=== PATIENT | male | born 1960 | race Caucasian/White ===

== ENCOUNTER 2016-08-24 11:33 | Observation (INO) | payer MEDICAID, MEDICARE ==
[2016-08-24 12:03] LABS: Basophils % (A) 0 %; CH 29.5; CHCM 35.8; Eosinophils # (A) 0.1 k/uL (0-0.7); Eosinophils % (A) 1 %; HCT 39.3 % (39.0-53.0); HDW 3.01; HGB 14.4 gm/dL (13.0-17.5); Luc # (Auto) 0.18; Luc % (Auto) 2; Lymphocytes # (A) 0.9 k/uL (1.0-4.8); Lymphocytes % (A) 10 %; MCH 30.3 pg (25.0-35.0); MCHC 36.6 g/dL (31.0-37.0); MCV 82.6 fL (80.0-100.0); Mean Platelet Volume 8.1; Monocytes # (A) 0.9 k/uL (0-1.0); Monocytes % (A) 10 %; Neutrophils # (A) 7.1 k/uL (1.3-7.7); Neutrophils % (A) 78 %; RBC 4.75 m/uL (4.30-5.90); RDW 13.4 % (11.5-15.5); WBC 9.2 k/uL (3.8-10.6); WBC (Perox) 8.35
[2016-08-24 12:33] LABS: ALT 27 U/L (21-72); AST 21 U/L (17-59); Alkaline Phosphatase 76 U/L (38-126); Amylase <30 U/L (30-110); Bilirubin, Delta 0.3 mg/dL (0.0-0.2); Total Bilirubin 0.7 mg/dL (0.2-1.3); Total Protein 6.9 g/dL (6.3-8.2)
--- NOTE | 2016-08-24 14:02 | CT ---
EXAMINATION TYPE: CT abdomen pelvis w con DATE OF EXAM: 08/24/2016 COMPARISON: NONE HISTORY: 56-year-old male with RLQ pain, nausea/vomiting and fever TECHNIQUE: Contiguous axial scanning of the abdomen and pelvis following administration of 100 ml Omn ipaque 300 IV contrast. Delayed images through the kidneys and coronal/sagittal reconstructions perf ormed. CT DLP: 839.2 mGycm Automated exposure control for dose reduction was used. FINDINGS: The heart is normal size without pericardial effusion. The band of atelectasis or scarring at the pos terior right lung base with some trace pleural effusion. Small hiatal hernia. No focal liver lesion or biliary ductal dilatation. Portal venous system is patent. Gallbladder, adrenal glands, kidneys, spleen with inferior splenule, and pancreas show no gross abnor mality. There is a 3.5 cm lesion that is round projecting from the inferior aspect of the third portion of th e duodenum. No significant change in density on the delayed kidney images with Hounsfield units aroun d 40. Scattered nonenlarged mesenteric lymph nodes. There are severe focal inflammatory changes centered along the appendix and in anterior cecum. This c auses some of the appendix to be obscured but the appendix is seen within these inflammatory changes collapsed and with a tiny 4 mm appendicolith along its mid segment inflammatory edema tracks down the right psoas. No abscess formation or free air seen. Oral contrast has progressed into the ascending colon. No significant stool burden. Prostate gland measures 5.5 cm wide. Numerous pelvic phleboliths. Bladder is collapsed but shows mild circumferential wall thickening. No abnormal fluid collection in the pelvis or pelvic lymphadenopath y. Bones: No osseous destructive process. IMPRESSION: 1. MODERATE TO SEVERE INFLAMMATORY CHANGES CENTERED ALONG THE COLLAPSED APPENDIX AND INFERIOR CECUM. FINDINGS SUGGEST ACUTE APPENDICITIS COMPLICATED BY RUPTURE. NO ABSCESS OR FREE AIR. 2. A 3.5 CM CYSTIC LESION PROJECTING ALONG THE INFERIOR MARGIN OF THE THIRD PORTION OF THE DUODENUM. THIS WARRANTS FURTHER EVALUATION ON AN OUTPATIENT BASIS. CONTRAST-ENHANCED ABDOMEN MRI CAN EXCLUDE AN Y INTERNAL ENHANCEMENT. A GI DUPLICATION CYST IS FAVORED. 3. PROSTATOMEGALY (5.5 CM WIDE). MILD BLADDER WALL HYPERTROPHY. 4. SMALL HIATAL HERNIA.
[2016-08-24 15:12] VITALS: BMI 24.6
[2016-08-24] MEDS: SODIUM CHLORIDE 0.9% 1,000 ML IV SCH (16:54)
[2016-08-24] MEDS ORDERED: ONDANSETRON 4 MG/2 ML VIAL IVP PRN (18:18)
[2016-08-24] MEDS ORDERED: HYDROmorphone 1 MG/ML 1 ML SYRINGE IVP PRN (18:18)
[2016-08-24] MEDS ORDERED: ACETAMINOPHEN TAB 325 MG TAB PO PRN (18:19)
--- NOTE | 2016-08-24 20:20 | P.GSCN ---
History of Present Illness Consult date: 08/24/16 Reason for Consult: Right lower quadrant pain History of present illness: This 56-year-old male with a five-day history of right lower quadrant abdominal pain. Patient was sent to the CAT scan by Dr. Kareen timmons. Patient's found have evidence of appendicitis. He's been admitted to the hospital. The patient states his pain is mainly in the right lower quadrant colostomy 5 days. He denies any nausea vomiting. Denies any significant abdominal pain. 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, inguinal hernia, heartburn, patent foramen ovale, History of Any Multi-Drug Resistant Organisms: None Reported Additional Past Surgical History / Comment(s): eye surgery x 2, removal of meningioma Past Anesthesia/Blood Transfusion Reactions: Postoperative Nausea & Vomiting ( PONV) Additional Past Anesthesia/Blood Transfusion Reaction / Comm: motion sickness as child Past Psychological History: No Psychological Hx Reported Smoking Status: Never smoker Past Alcohol Use History: Rare Past Drug Use History: None Reported - Past Family History Father Family Medical History: Cancer Medications and Allergies Home Medications Medication Instructions Recorded Confirmed Type Simvastatin [Zocor] 20 mg PO HS 10/30/14 08/24/16 History Tamsulosin [Flomax] 0.4 mg PO DAILY 10/30/14 08/24/16 History Warfarin Sodium [Coumadin] 5 mg PO SUTUTHSA 10/30/14 08/24/16 History Warfarin [Coumadin] 7.5 mg PO MOWEFR 10/30/14 08/24/16 History Ibuprofen [Motrin] 400 mg PO Q6HR PRN 08/24/16 08/24/16 History Allergies Allergy/AdvReac Type Severity Reaction Status Date / Time No Known Allergies Allergy Verified 08/24/16 15:51 Surgical - Exam Vital Signs Temp Pulse Resp BP Pulse Ox 98.3 F 89 16 134/87 96 08/24/16 15:26 08/24/16 15:26 08/24/16 15:26 08/24/16 15:26 08/24/16 15:26 - General well developed, no distress - Eyes PERRL - ENT normal pinna - Neck no masses - Respiratory normal expansion - Abdomen Abdomen soft. There is no rebound or guarding. There is mild tenderness right lower quadrant. Abdomen: soft Results - Labs 08/24/16 11:45 Abnormal Lab Results - Last 24 Hours (Table) 08/24/16 08/24/16 Range/Units 11:45 11:45 Lymphocytes # 0.9 L (1.0-4.8) k/uL Delta Bilirubin 0.3 H (0.0-0.2) mg/dL Amylase <30 L (30-110) U/L Diabetes panel 08/24/16 Range/Units 11:45 AST 21 (17-59) U/L ALT 27 (21-72) U/L Alkaline Phosphatase 76 (38-126) U/L Total Protein 6.9 (6.3-8.2) g/dL Albumin 3.9 (3.5-5.0) g/dL Calcium panel 08/24/16 Range/Units 11:45 Albumin 3.9 (3.5-5.0) g/dL Adrenal panel 08/24/16 Range/Units 11:45 Total Bilirubin 0.7 (0.2-1.3) mg/dL AST 21 (17-59) U/L ALT 27 (21-72) U/L Alkaline Phosphatase 76 (38-126) U/L Total Protein 6.9 (6.3-8.2) g/dL Albumin 3.9 (3.5-5.0) g/dL - Imaging CT scan - abdomen: report reviewed (Evidence of cecal and appendiceal inflammation.) Assessment and Plan Plan: Acute appendicitis. Patient will undergo laparoscopic appendectomy in a.m.
[2016-08-25 13:16] LABS: INR 3.2 (<1.1); Prothrombin Time 30.6 sec (9.0-12.0)
--- NOTE | 2016-08-25 13:46 | P.PN ---
Subjective Principal diagnosis: Acute appendicitis The patient states he feels better. He states his pain is a 2 out of 10. His INR is elevated at 3.2. Objective - Vital Signs Vital signs: Vital Signs Temp 98.3 F 08/25/16 07:02 Pulse 80 08/25/16 07:10 Resp 27 H 08/25/16 07:10 BP 122/85 08/25/16 07:02 Pulse Ox 93 L 08/25/16 07:02 Intake & Output 08/24/16 08/25/16 08/25/16 18:59 06:59 18:59 Intake Total 600 950 Output Total 500 Balance 100 950 Weight 78 kg 78 kg Intake: IV 950 Invasive Line 2 950 Intake, IV Titration 600 Amount Sodium Chloride 0.9% 1, 600 000 ml @ 75 mls/hr IV . [id number] IVETT Rx#:[id number] Oral 0 Output: Urine 500 Other: Voiding Method Toilet Toilet # Voids 1 - Constitutional General appearance: Present: cooperative - Gastrointestinal Gastrointestinal Comment(s): Abdomen soft. There is minimal right lower quadrant pain. This no rebound or guarding. - Labs CBC & Chem 7: 08/24/16 11:45 Labs: Abnormal Lab Results - Last 24 Hours (Table) 08/25/16 Range/Units 12:49 PT 30.6 H (9.0-12.0) sec Assessment and Plan Plan: Chronic appendicitis. Patient's pain is improved. His laparoscopic appendectomy was scheduled for today. However due to his elevated INR will be canceled. We will reevaluate him tomorrow. He may benefit from a interval appendectomy done in the distant future.
--- NOTE | 2016-08-25 14:24 | P.HPIM ---
History of Present Illness H&P Date: 08/25/16 Chief Complaint: RLQ pain THis is a pleasant 56 y/o wm patient of my partner, Dr Cheryle Mathur. He came into the office yesterday c/o a 5 day h/o RLQ zabrina nthat has increased in severity. He denied any N/V/cp/pressure/sob. he was sent for stat CT abd showing focal inflammatory changes along the appendix. He was directly admitted for further w/u. Dr Gillette has been consulted. Lap appy pending. Review of Systems All systems: negative Past Medical History Past Medical History: CVA/TIA, Prostate Disorder Additional Past Medical History / Comment(s): hs migraines, CVA 2005-weakness of left side, inguinal hernia, heartburn, patent foramen ovale, History of Any Multi-Drug Resistant Organisms: None Reported Additional Past Surgical History / Comment(s): eye surgery x 2, removal of meningioma Past Anesthesia/Blood Transfusion Reactions: Postoperative Nausea & Vomiting ( PONV) Additional Past Anesthesia/Blood Transfusion Reaction / Comment(s): motion sickness as child Past Psychological History: No Psychological Hx Reported Smoking Status: Never smoker Past Alcohol Use History: Rare Past Drug Use History: None Reported - Past Family History Father Family Medical History: Cancer Medications and Allergies Home Medications Medication Instructions Recorded Confirmed Type Simvastatin [Zocor] 20 mg PO HS 10/30/14 08/24/16 History Tamsulosin [Flomax] 0.4 mg PO DAILY 10/30/14 08/24/16 History Warfarin Sodium [Coumadin] 5 mg PO SUTUTHSA 10/30/14 08/24/16 History Warfarin [Coumadin] 7.5 mg PO MOWEFR 10/30/14 08/24/16 History Ibuprofen [Motrin] 400 mg PO Q6HR PRN 08/24/16 08/24/16 History Allergies Allergy/AdvReac Type Severity Reaction Status Date / Time No Known Allergies Allergy Verified 08/24/16 15:51 Physical Exam Vitals: Vital Signs Temp Pulse Resp BP Pulse Ox 08/25/16 13:45 98.4 F 84 16 122/82 95 08/25/16 07:10 80 27 H 08/25/16 07:05 80 27 H 08/25/16 07:02 98.3 F 80 27 H 122/85 93 L 08/25/16 03:10 98.9 F 80 17 121/84 93 L 08/24/16 19:41 98.8 F 94 17 130/68 93 L 08/24/16 15:26 98.3 F 89 16 134/87 96 Intake and Output 08/24/16 08/25/16 08/25/16 22:59 06:59 14:59 Intake Total 600 950 Output Total 500 0 Balance -500 600 950 Intake: IV 950 Invasive Line 2 950 Intake, IV Titration 600 Amount Sodium Chloride 0.9% 1, 600 000 ml @ 75 mls/hr IV . [id number] IVETT Rx#:[id number] Oral 0 Output: Urine 500 0 Other: Voiding Method Toilet Toilet # Voids 1 Weight 78 kg 78 kg Patient Weight 08/26/16 06:59 Weight 78 kg - Constitutional General appearance: average body habitus, mild distress - EENT Eyes: EOMI, PERRLA ENT: normal oropharynx - Neck Neck: no lymphadenopathy, no thyromegaly - Respiratory Respiratory: bilateral: CTA - Cardiovascular Rhythm: regular Heart sounds: normal: S1, S2 Abnormal Heart Sounds: no systolic murmur - Gastrointestinal General gastrointestinal: decreased bowel sounds Localized gastrointestinal: tender: RLQ - Psychiatric Psychiatric: A&O x's 3 Results CBC & Chem 7: 08/24/16 11:45 Labs: Abnormal Lab Results - Last 24 Hours (Table) 08/25/16 Range/Units 12:49 PT 30.6 H (9.0-12.0) sec CT scan - abdomen: report reviewed Thrombosis Risk Factor Assmnt - DVT/VTE Prophylaxis DVT/VTE Prophylaxis: Low risk, early ambulation encouraged - Choose All That Apply Each Factor Represents 1 point: Age 41-60 years Thrombosis Risk Factor Assessment Total Risk Factor Score: 1 Thrombosis Risk Factor Assessment Level: Low Risk Assessment and Plan Plan: acute appendicitis: consult surgery, await excision and lap appy h/o CVA: stable I will reevaluate hm in 24 hrs
[2016-08-25] MEDS: SODIUM CHLORIDE 0.9% 1,000 ML IV SCH ×2 (14:38→20:26)
[2016-08-25] MEDS: PIPERACILLIN-TAZOBACTAM 3.375 GM in DEXTROSE/WATER 1 50ML.BAG IVPB SCH ×2 (16:40→23:53)
[2016-08-26 07:42] LABS: Basophils # (A) 0.1 k/uL (0-0.2); Basophils % (A) 1 %; CH 29.3; CHCM 34.6; Eosinophils # (A) 0.1 k/uL (0-0.7); Eosinophils % (A) 2 %; HCT 39.9 % (39.0-53.0); HDW 3.02; HGB 13.9 gm/dL (13.0-17.5); Luc # (Auto) 0.26; Luc % (Auto) 3; Lymphocytes # (A) 1.1 k/uL (1.0-4.8); Lymphocytes % (A) 13 %; MCH 29.6 pg (25.0-35.0); MCHC 34.9 g/dL (31.0-37.0); MCV 84.9 fL (80.0-100.0); Mean Platelet Volume 7.3; Monocytes # (A) 0.5 k/uL (0-1.0); Monocytes % (A) 6 %; Neutrophils # (A) 6.7 k/uL (1.3-7.7); Neutrophils % (A) 76 %; RBC 4.71 m/uL (4.30-5.90); RDW 13.2 % (11.5-15.5); WBC 8.8 k/uL (3.8-10.6); WBC (Perox) 9.07
[2016-08-26] MEDS: PIPERACILLIN-TAZOBACTAM 3.375 GM in DEXTROSE/WATER 1 50ML.BAG IVPB SCH (08:28)
[2016-08-26 09:14] LABS: INR 2.5 (<1.1)
[2016-08-26 09:15] LABS: Prothrombin Time 24.3 sec (9.0-12.0)
[2016-08-26] MEDS ORDERED: WARFARIN 5 MG TAB PO SCH (10:30)
[2016-08-26] MEDS: SODIUM CHLORIDE 0.9% 1,000 ML IV SCH (11:30)
--- NOTE | 2016-08-26 13:02 | P.DS ---
Providers Date of admission: 08/24/16 14:28 Expected date of discharge: 08/26/16 Attending physician: Marquis Mathur Consults: 08/24/16 16:32 Consult Physician Stat Consulting Provider: Arsen Mann Consult Reason/Comments: Appedicitis Do you want consulting provider notified?: Yes Primary care physician: [facility] Course: THis is a pleasant 56 y/o wm patient of my partner, Dr Cheryle Mathur. He came into the office yesterday c/o a 5 day h/o RLQ zabrina nthat has increased in severity. He denied any N/V/cp/pressure/sob. he was sent for stat CT abd showing focal inflammatory changes along the appendix. He was directly admitted for further w/u. Dr Gillette has been consulted. Lap appy pending. The lab appendectomy was postponed after his symptoms significantly improved with IV antibiotics. Dr. Rock felt he was stable to go home and like to perform his appendectomy in several weeks, after he is been on Levaquin. Dr. Rock and I discussed the Levaquin/Coumadin interactions, we will monitor his INR closely. Patient Condition at Discharge: Fair Plan - Discharge Summary New Discharge Prescriptions: New Acetaminophen Tab [Tylenol] 650 mg PO Q6HR PRN tab PRN Reason: Fever and/ or Mild Pain Levofloxacin [Levaquin] 500 mg PO DAILY #14 tab Continue Warfarin Sodium [Coumadin] 5 mg PO SUTUTHSA Simvastatin [Zocor] 20 mg PO HS Warfarin [Coumadin] 7.5 mg PO MOWEFR Tamsulosin [Flomax] 0.4 mg PO DAILY Ibuprofen [Motrin] 400 mg PO Q6HR PRN PRN Reason: Pain Discharge Medication List Simvastatin [Zocor] 20 mg PO HS 10/30/14 [History] Tamsulosin [Flomax] 0.4 mg PO DAILY 10/30/14 [History] Warfarin Sodium [Coumadin] 5 mg PO SUTUTHSA 10/30/14 [History] Warfarin [Coumadin] 7.5 mg PO MOWEFR 10/30/14 [History] Ibuprofen [Motrin] 400 mg PO Q6HR PRN 08/24/16 [History] Acetaminophen Tab [Tylenol] 650 mg PO Q6HR PRN tab 08/26/16 [Rx] Levofloxacin [Levaquin] 500 mg PO DAILY #14 tab 08/26/16 [Rx] Follow up Appointment(s)/Referral(s): Marquis Mathur Jr, DO [Primary Care Provider] - 1 Week Arsen Mann MD [STAFF PHYSICIAN] - 1 Week Discharge Disposition: HOME SELF-CARE
--- NOTE | 2016-08-26 13:03 | P.PN ---
Progress Note - Text The patient feels well. He has minimal complaints of pain. He is tolerating clear liquid diet. On exam his vital signs are stable. His abdomen is soft. His abdomen is soft without any significant tenderness. Patiently discharged home today. He will start Levaquin 500 mg by mouth daily. He'll follow-up in one week. We will plan for interval appendectomy in 4 weeks.
[2016-08-26 13:38] VITALS: BP 116/75; PULSE 91; RESP 16; TEMP 98.2
[2016-08-27] MEDS ORDERED: WARFARIN 7.5 MG TAB PO SCH (18:00)
== END 2016-08-26 15:26 | disposition home or self-care (01) ==
LOC: RADCTMAIN 11:33 → INTOOBSV 14:28 → 3SUR 14:28
PROVIDERS: ADMIT Family Medicine; ATTEND Family Medicine
DX: K35.80 Unspecified acute appendicitis (principal); K44.9 Diaphragmatic hernia without obstruction or gangrene; N40.0 Benign prostatic hyperplasia without lower urinary tract symptoms; Q21.1 Atrial septal defect; I69.354 Hemiplegia and hemiparesis following cerebral infarction affecting left non-dominant side; G43.909 Migraine, unspecified, not intractable, without status migrainosus; Z79.01 Long term (current) use of anticoagulants; Z79.899 Other long term (current) drug therapy
CPT/HCPCS: 96365; 96366 ×2; 80076; 82150; 83690; 85025 ×2; 85610 ×2; 74177; G0378 ×3; J2543 ×2; Q9967

== ENCOUNTER → 2016-09-06 | Outpatient (CLI) | payer MEDICAID ==
--- NOTE | 2016-09-06 15:22 | MR ---
EXAMINATION TYPE: MR abdomen wo/w con DATE OF EXAM: 09/06/2016 COMPARISON: CT abdomen and pelvis August 24, 2016. HISTORY: Duodenal cyst lesion, abnormal recent CT. CONTRAST: Standard multiplanar, multisequence MRI departmental protocol utilizing 17 mL intravenous MultiHance gadolinium contrast. FINDINGS: Corresponding to CT abnormality inferior to the pancreatic head also inferior to the duoden al sweep abutting the inferior margin of the third portion of duodenum there is redemonstration of we ll-circumscribed oval-shaped lesion measuring 2.8 cm AP diameter by 3.5 cm transversely that shows T1 hypointensity and heterogeneous T2 hyperintensity. Dynamic postcontrast images show heterogeneous pr ogressive enhancement most prominent on delayed phased images. Lesion abuts the IVC posteriorly which is narrowed due to lesion. No thrombus is evident on postcontrast images only local mass effect is s een. Lung bases are grossly clear. There is no pleural or pericardial effusion identified. Small hiatal he rnia is redemonstrated. The liver, gallbladder, pancreas, and bilateral adrenal glands are normal in size and appear grossly unremarkable. Spleen size is stable and upper limits of normal. There is no s uspicious renal masses or hydronephrosis seen bilaterally. There is no concerning small or large mukund l dilatation. Entire cecum is not included in [id number] on today's study. Interval improvement in inflammatory change right lower quadrant mesenteric fat is noted. There is no concerning abdominal f luid collection. There is no greater than 1 cm abdominal adenopathy. Visualized osseous structures ar e grossly intact. IMPRESSION: There is redemonstration of 3.5 cm well-circumscribed lesion in the retroperitoneum inferior to third portion of duodenum abutting IVC posteriorly and third portion posterior wall of duodenum anteriorly . Study at this value as there is progressive delayed enhancement excluding cystic mass or lesion cor relating with solid mass at this level. Etiology uncertain. Abnormal retroperitoneal adenopathy is in differential. Surgical consultation advised as lesion likely is inaccessible by CT-guided sampling o r biopsy. Consider PET/CT correlation. At minimum short-term imaging follow-up in 3-6 months time is advised to see stability or interval growth.
== END ==
LOC: RADMRIMAIN 13:08
PROVIDERS: ATTEND Surgery
DX: K31.89 Other diseases of stomach and duodenum (principal)
CPT/HCPCS: 74183; A9577

== ENCOUNTER 2016-09-08 08:23 | Inpatient (IN) | payer MEDICAID, MEDICARE ==
[2016-09-06 09:10] VITALS: BMI 26.5
[~2016-09-08 08:23] MED LIST: DEXAMETHASONE SOD PHOSPHATE 10 MG/ML 1 ML VIAL IV ONE; HEPARIN SODIUM,PORCINE 5,000 UNIT/ML 1 ML VIAL SQ ONE; LIDOCAINE 1% 20 ML VIAL (10MG/ML) FOR IV START INTRADERMA PRN; MIDAZOLAM 2 MG/2 ML VIAL IV PRN; ONDANSETRON 4 MG/2 ML VIAL IVP ONE; SCOPOLAMINE 1.5MG/72HR PATCH TRANSDERM ONE; ceFAZolin 2 GM in SODIUM CHLORIDE 0.9% 100 ML IVPB ONE; metroNIDAZOLE-NS PMX 500 MG in SALINE 1 100ML.BAG IVPB ONE
[2016-09-08] MEDS: LACTATED RINGERS 1,000 ML IV SCH (09:04)
[2016-09-08 09:19] LABS: INR 1.4 (<1.2)
--- NOTE | 2016-09-08 10:40 | P.GSHP ---
History of Present Illness H&P Date: 09/08/16 Chief Complaint: Appendicitis This is a 56-year-old male presents today for laparoscopic appendectomy. Patient has chronic appendicitis. Presents today for interval appendectomy. 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, inguinal hernia, heartburn, patent foramen ovale History of Any Multi-Drug Resistant Organisms: None Reported Additional Past Surgical History / Comment(s): eye surgery x 2, removal of meningioma Past Anesthesia/Blood Transfusion Reactions: Postoperative Nausea & Vomiting ( PONV) Additional Past Anesthesia/Blood Transfusion Reaction / Comment(s): motion sickness as child Smoking Status: Never smoker - Past Family History Father Family Medical History: Cancer Medications and Allergies Home Medications Medication Instructions Recorded Confirmed Type Simvastatin [Zocor] 20 mg PO HS 10/30/14 09/08/16 History Tamsulosin [Flomax] 0.4 mg PO DAILY 10/30/14 09/08/16 History Warfarin Sodium [Coumadin] 5 mg PO SUTUTHSA 10/30/14 09/08/16 History Warfarin [Coumadin] 7.5 mg PO MOWEFR 10/30/14 09/06/16 History Allergies Allergy/AdvReac Type Severity Reaction Status Date / Time No Known Allergies Allergy Verified 09/08/16 09:36 Surgical - Exam Vital Signs Temp Pulse Resp BP Pulse Ox 98.2 F 78 16 125/81 93 L 09/08/16 08:47 09/08/16 08:47 09/08/16 08:47 09/08/16 08:47 09/08/16 08:47 - General well developed, no distress - Eyes PERRL - ENT normal pinna, normal nares - Neck no masses - Respiratory normal expansion - Cardiovascular Rhythm: regular - Abdomen Abdomen: soft, non tender Results - Labs Abnormal Lab Results - Last 24 Hours (Table) 09/08/16 Range/Units 08:00 PT 14.0 H (9.0-12.0) sec INR 1.4 H (<1.2) Assessment and Plan Plan: Chronic appendicitis. We'll perform laparoscopic appendectomy
[2016-09-08] MEDS ORDERED: BUPIVACAIN-EPI 0.25%-1:200,000 30 ML VIAL SQ ONE ×2 (11:37→11:47)
[2016-09-08] MEDS ORDERED: LACTATED RINGERS 1,000 ML IV ONE ×2 (11:53→13:07)
--- NOTE | 2016-09-08 13:07 | P.OP ---
Date of Procedure: 09/08/16 Preoperative Diagnosis: Chronic appendicitis Postoperative Diagnosis: Chronic appendicitis with cecal inflammation and small bowel inflammation Procedure(s) Performed: Laparoscopic appendectomy Right colectomy Implants: Anesthesia: JUD Surgeon: Arsen Mann Estimated Blood Loss (ml): 50 Pathology: other (Ileocecal, appendix) Condition: stable Disposition: PACU Indications for Procedure: Operative Findings: Description of Procedure: The patient's placed the operative table in the supine position. He received general anesthesia. His abdomen was prepped and draped usual sterile fashion. A infra umbilical skin incision was made and then using the Veress needle the peritoneal cavity was entered the peritoneal with positive drop test. The abdomen was then insufflated and then a 5 mm trochars placed in the pleural cavity. Next a 5 mm trochars placed into the suprapubic position and then a 12 mm trochars placed in the epigastric midline. The laparoscope placed back the pleural cavity and then the cecum was examined. There appeared to be evidence of inflammation of the cecum and terminal ileum. There was inflammatory mass stuck on the cecum was thought to be the appendix. This was dissected free and then an Endoloop was placed around the mass. The Endoloop was secured and then the mass was cut and then withdrawn Endo Catch bag the specimen was examined. It was unclear if this is a 6 injury and fat or an obliterated appendix. This point decided to convert to the open procedure the trochars withdrawn and a midline incision was made. The abdomen was entered. The terminal ileum and cecum appeared to be inflamed. At this point decided to perform a limited right colectomy. The terminal ileum was transected with a GI stapler. And then the cecum was mobilized by dividing the white line of Toldt's and then the right colon was transected with a GI stapler. The specimen mesentery was divided using the Harmonic scissors. The right colic vessel was ligated with 0 silk ties. A [id number] functional end-to-end staple anastomosis was created. The abdomen was then irrigated. A 3-0 GI silk suture was placed in the crotch stitch. The fascia was then closed with looped #1 PDS suture. Skin closed with bill. The patient was sent to recovery room stable condition.
[2016-09-08] MEDS: HYDROmorphone 1 MG/ML 1 ML SYRINGE IVP PRN ×6 (13:30→21:26)
--- NOTE | 2016-09-08 15:04 | P.CONS ---
History of Present Illness - Reason for Consult Consult date: 09/08/16 Medical management Requesting physician: Arsen Mann - Chief Complaint Right lower quadrant abdominal pain, appendicitis - History of Present Illness Mr. Martinez is a 56-year-old male well-known to my practice, who presented today for elective laparoscopic appendectomy. Patient has chronic appendicitis presented to my office approximately one week and a half ago with right lower quadrant pain positive pain directly at [facility] and over [place] point. Was sent for a abdominal CAT scan which showed inflammation and a chronic process at or around the cecum from where the appendix is supposed to be. Dr. Mann and was consulted, patient was treated with IV antibiotics and released after 48 hours. The patient was brought back for an elective procedure today. 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) 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, inguinal hernia, heartburn, patent foramen ovale , right 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 History of Any Multi-Drug Resistant Organisms: None Reported Additional Past Surgical History / Comment(s): eye surgery x 2, removal of meningioma Past Anesthesia/Blood Transfusion Reactions: Postoperative Nausea & Vomiting ( PONV) Additional Past Anesthesia/Blood Transfusion Reaction / Comm: motion sickness as child Smoking Status: Never smoker - Past Family History Father Family Medical History: Cancer Medications and Allergies Home Medications Medication Instructions Recorded Confirmed Type Simvastatin [Zocor] 20 mg PO HS 10/30/14 09/08/16 History Tamsulosin [Flomax] 0.4 mg PO DAILY 10/30/14 09/08/16 History Warfarin Sodium [Coumadin] 5 mg PO SUTUTHSA 10/30/14 09/08/16 History Warfarin [Coumadin] 7.5 mg PO MOWEFR 10/30/14 09/08/16 History Allergies Allergy/AdvReac Type Severity Reaction Status Date / Time No Known Allergies Allergy Verified 09/08/16 09:36 Physical Exam Osteopathic Statement: *. No significant issues noted on an osteopathic structural exam other than those noted in the History and Physical/Consult. Vitals: Vital Signs Temp Pulse Pulse Pulse Resp BP BP 09/08/16 14:15 73 16 113/78 09/08/16 14:00 68 18 113/78 09/08/16 13:45 64 16 125/79 09/08/16 13:30 62 16 137/87 09/08/16 13:15 63 16 130/82 09/08/16 13:08 97.4 F L 68 14 122/79 09/08/16 08:47 98.2 F 78 16 125/81 Pulse Ox 09/08/16 14:15 96 09/08/16 14:00 95 09/08/16 13:45 99 09/08/16 13:30 98 09/08/16 13:15 98 09/08/16 13:08 99 09/08/16 08:47 93 L Intake and Output 09/07/16 09/08/16 09/08/16 22:59 06:59 14:59 Intake Total 2700 Output Total 200 Balance 2500 Intake: IV 2700 Output: Estimated Blood Loss 200 General: [Patient awake, alert and oriented times 3. Patient in no acute distress.] HEENT: [PERRL. EOMI. No pharyngeal erythema or exudate.] Neck: [No adenopathy.] Cardiac: [Heart regular in rate and rhythm. No S3. No S4. No clicks, rubs. No murmur.] Lungs: [Clear to auscultation bilaterally.] Abdomen: [No mass. No organomegaly. Bowel sounds presnt and normoactive in all 4 quadrants, laparoscopic incisions shifted to open appendectomy wound clean and dry Extremes: [No edema no cyanosis no claudication normal pulses] : [] Musculoskeletal: [No joint erythema, edema or tenderness.] Skin: [No rash.] Neurologic: [No lateralizing deficits. CN II - XII grossly intact.] Lymphatic: [No adenopathy.] Results Labs: Abnormal Lab Results - Last 24 Hours (Table) 09/08/16 Range/Units 08:00 PT 14.0 H (9.0-12.0) sec INR 1.4 H (<1.2) Assessment and Plan Plan: Chronic appendicitis, elective appendectomy patient awake alert doing well we will re-evaluate tomorrow
[2016-09-08 15:22] LABS: Basophils % (A) 0 %; CH 28.6; CHCM 33.8; Eosinophils % (A) 0 %; HCT 37.7 % (39.0-53.0); HDW 3.13; HGB 12.9 gm/dL (13.0-17.5); Luc # (Auto) 0.04; Luc % (Auto) 0; Lymphocytes # (A) 0.5 k/uL (1.0-4.8); Lymphocytes % (A) 4 %; MCH 28.9 pg (25.0-35.0); MCHC 34.1 g/dL (31.0-37.0); MCV 84.7 fL (80.0-100.0); Mean Platelet Volume 7.3; Monocytes # (A) 0.3 k/uL (0-1.0); Monocytes % (A) 2 %; Neutrophils # (A) 14.1 k/uL (1.3-7.7); Neutrophils % (A) 94 %; RBC 4.45 m/uL (4.30-5.90); WBC (Perox) 15.77
[2016-09-08 15:34] LABS: Anion Gap 9 mmol/L; Blood Urea Nitrogen 19 mg/dL (9-20); Calcium 8.5 mg/dL (8.4-10.2); Carbon Dioxide 26 mmol/L (22-30); Chloride 105 mmol/L (98-107); Glucose 143 mg/dL (74-99); Non-African American GFR(MDRD) >60 (>60 ml/min/1.73 sqM); Potassium 4.5 mmol/L (3.5-5.1); Sodium 140 mmol/L (137-145)
[2016-09-08] MEDS: D5-0.45% NACL WITH KCL 20MEQ/L 1,000 ML IV SCH ×2 (15:37→23:27)
[2016-09-08] MEDS: HEPARIN SODIUM,PORCINE 5,000 UNIT/ML 1 ML VIAL SQ SCH ×2 (18:37→23:28)
[2016-09-08] MEDS: ALVIMOPAN 12 MG CAPSULE PO SCH (20:15)
[2016-09-08] MEDS: ONDANSETRON 4 MG/2 ML VIAL IVP PRN (20:19)
[2016-09-08] MEDS: KETOROLAC 30 MG/ML 1 ML VIAL IVP PRN (20:51)
[2016-09-09] MEDS: HYDROmorphone 1 MG/ML 1 ML SYRINGE IVP PRN ×7 (02:59→23:29)
[2016-09-09] MEDS: LACTATED RINGERS 1,000 ML IV SCH (05:51)
[2016-09-09] MEDS: D5-0.45% NACL WITH KCL 20MEQ/L 1,000 ML IV SCH ×2 (05:51→12:54)
[2016-09-09] MEDS: ALVIMOPAN 12 MG CAPSULE PO SCH ×2 (08:26→20:48)
[2016-09-09] MEDS: HEPARIN SODIUM,PORCINE 5,000 UNIT/ML 1 ML VIAL SQ SCH ×3 (08:26→23:37)
[2016-09-09] MEDS: ONDANSETRON 4 MG/2 ML VIAL IVP PRN ×2 (08:31→20:48)
[2016-09-09 11:34] LABS: INR 1.4 (<1.2); Prothrombin Time 14.1 sec (9.0-12.0)
[2016-09-09] MEDS: TAMSULOSIN 0.4 MG CAP.ER.24H PO SCH (12:26)
[2016-09-09] MEDS ORDERED: METOCLOPRAMIDE 5 MG/ML 2 ML VIAL IVP PRN (13:01)
[2016-09-09] MEDS: PANTOPRAZOLE 40 MG TABLET PO SCH (13:56)
[2016-09-09] MEDS: CALCIUM CARBONATE 500 MG CHEWABLE PO PRN ×2 (17:00→18:01)
--- NOTE | 2016-09-09 17:57 | P.PN ---
Progress Note - Text The patient's postoperative day 1 from right colectomy for chronic appendicitis. Patient doing fairly well. He has minimal incisional pain. On exam is lesser stable. His abdomen soft. Patient will remain on clear liquid diet. We'll advance his diet once his bowel function has returned.
[2016-09-09] MEDS: WARFARIN 5 MG TAB PO SCH (18:00)
[2016-09-09] MEDS ORDERED: CALCIUM CARBONATE 500 MG CHEWABLE PO PRN (18:18)
[2016-09-09] MEDS: ATORVASTATIN 10 MG TAB PO SCH (20:52)
[2016-09-09] MEDS: PIPERACILLIN-TAZOBACTAM 3.375 GM in DEXTROSE/WATER 1 50ML.BAG IVPB SCH (23:29)
[2016-09-10] MEDS: HYDROmorphone 1 MG/ML 1 ML SYRINGE IVP PRN ×3 (05:12→23:32)
[2016-09-10] MEDS: D5-0.45% NACL WITH KCL 20MEQ/L 1,000 ML IV SCH ×3 (06:04→16:50)
[2016-09-10] MEDS: ONDANSETRON 4 MG/2 ML VIAL IVP PRN (08:05)
[2016-09-10] MEDS: ALVIMOPAN 12 MG CAPSULE PO SCH ×2 (08:09→20:29)
[2016-09-10] MEDS: HEPARIN SODIUM,PORCINE 5,000 UNIT/ML 1 ML VIAL SQ SCH ×3 (08:09→23:28)
[2016-09-10] MEDS: TAMSULOSIN 0.4 MG CAP.ER.24H PO SCH (08:09)
[2016-09-10] MEDS: PANTOPRAZOLE 40 MG TABLET PO SCH (08:09)
[2016-09-10] MEDS: PIPERACILLIN-TAZOBACTAM 3.375 GM in DEXTROSE/WATER 1 50ML.BAG IVPB SCH ×3 (08:09→23:28)
[2016-09-10] MEDS: LACTATED RINGERS 1,000 ML IV SCH (10:54)
[2016-09-10] MEDS: KETOROLAC 30 MG/ML 1 ML VIAL IVP PRN (12:43)
--- NOTE | 2016-09-10 16:41 | P.PN ---
Subjective Principal diagnosis: Appendicitis, status post ileocecectomy The patient is postop day 2 from a limited ileocecal activity to 2 appendicitis with severe inflammation. He's having some slight nausea and heartburn. Tolerating sips of clear liquids. No vomiting, flatus, bowel movement. Pain is controlled. Objective - Vital Signs Vital signs: Vital Signs Temp 98.4 F 09/10/16 14:45 Pulse 72 09/10/16 14:45 Resp 16 09/10/16 14:45 BP 132/84 09/10/16 14:45 Pulse Ox 96 09/10/16 14:45 Intake & Output 09/09/16 09/10/16 09/10/16 18:59 06:59 18:59 Intake Total 1000 650 Output Total 565 2975 1900 Balance 435 -2975 -1250 Intake: Intake, IV Titration 1000 Amount D5-0.45% NaCl with KCl 1000 20Meq/l 1,000 ml @ 125 mls/hr IV .Q8H IVETT Rx#: [id number] Oral 650 Output: Urine 565 2975 1900 Straight 450 Uretheral ([place]) 825 Other: Voiding Method Indwelling Catheter Indwelling Catheter # Voids 1 - Constitutional General appearance: Present: cooperative, no acute distress - Respiratory Respiratory: bilateral: CTA, diminished (At the bases) - Cardiovascular Rhythm: regular - Gastrointestinal General gastrointestinal: Present: decreased bowel sounds, soft, tenderness ( Incisional) Localized gastrointestinal: surgical scar: diffuse (Dressings are intact clean and dry) - Labs CBC & Chem 7: 09/08/16 14:51 09/08/16 14:51 Assessment and Plan (1) Appendicitis Status: Acute Plan: Encourage activity and incentive spirometry. Hold off on advancing his diet since he is having nausea and heartburn. Progressing slowly.
[2016-09-10] MEDS ORDERED: WARFARIN 7.5 MG TAB PO SCH (18:00)
[2016-09-10] MEDS: ATORVASTATIN 10 MG TAB PO SCH (20:29)
[2016-09-11] MEDS: HYDROmorphone 1 MG/ML 1 ML SYRINGE IVP PRN ×5 (05:42→23:33)
[2016-09-11] MEDS: ALVIMOPAN 12 MG CAPSULE PO SCH ×2 (09:02→20:44)
[2016-09-11] MEDS: HEPARIN SODIUM,PORCINE 5,000 UNIT/ML 1 ML VIAL SQ SCH ×3 (09:02→23:33)
[2016-09-11] MEDS: PIPERACILLIN-TAZOBACTAM 3.375 GM in DEXTROSE/WATER 1 50ML.BAG IVPB SCH ×3 (09:02→23:33)
[2016-09-11] MEDS: PANTOPRAZOLE 40 MG TABLET PO SCH (09:02)
[2016-09-11] MEDS: TAMSULOSIN 0.4 MG CAP.ER.24H PO SCH (09:02)
[2016-09-11] MEDS ORDERED: MAG HYDROX/AL HYDROX/SIMETH 30 ML CUP PO PRN (12:45)
--- NOTE | 2016-09-11 12:50 | P.PN ---
Subjective Principal diagnosis: appendicitis Post opp day 3 appy, pt doing well Objective - Vital Signs Vital signs: Vital Signs Temp 97.4 F L 09/11/16 07:00 Pulse 95 09/11/16 07:00 Resp 18 09/11/16 07:00 BP 120/79 09/11/16 07:00 Pulse Ox 92 L 09/11/16 07:00 Intake & Output 09/10/16 09/11/16 09/11/16 18:59 06:59 18:59 Intake Total 650 2000 500 Output Total 2500 1925 Balance -1850 75 500 Intake: Intake, IV Titration 1100 Amount D5-0.45% NaCl with KCl 1000 20Meq/l 1,000 ml @ 125 mls/hr IV .Q8H IVETT Rx#: [id number] Piperacillin-Tazobactam 3 100 .375 gm In Dextrose/Water 1 50ml.bag @ 12.5 mls/hr IVPB Q8HR IVETT Rx#: [id number] Oral 650 900 500 Output: Urine 2500 1925 Uretheral ([place]) 825 Other: Voiding Method Indwelling Catheter # Voids 2 - Exam General: [Patient awake, alert and oriented times 3. Patient in no acute distress.] HEENT: [PERRL. EOMI. No pharyngeal erythema or exudate.] Neck: [No adenopathy.] Cardiac: [Heart regular in rate and rhythm. No S3. No S4. No clicks, rubs. No murmur.] Lungs: [Clear to auscultation bilaterally.] Abdomen: [No mass. No organomegaly. Bowel sounds presnt and normoactive in all 4 quadrants.] Incision clean and dry Extremes: [No edema no cyanosis no claudication normal pulses] : [] Musculoskeletal: [No joint erythema, edema or tenderness.] Skin: [No rash.] Neurologic: [No lateralizing deficits. CN II - XII grossly intact.] Lymphatic: [No adenopathy.] - Labs CBC & Chem 7: 09/08/16 14:51 09/08/16 14:51 Assessment and Plan Plan: Chronic appendicitis, elective appendectomy patient awake alert doing well we will re-evaluate tomorrow
--- NOTE | 2016-09-11 14:55 | P.PN ---
Subjective Principal diagnosis: Appendicitis, status post ileocecectomy The patient is doing better today. He is tolerating clear liquids. He is hungry. Pain is well-controlled. Complaining of some heartburn. Objective - Vital Signs Vital signs: Vital Signs Temp 98.7 F 09/11/16 14:08 Pulse 101 H 09/11/16 14:08 Resp 17 09/11/16 14:08 BP 130/87 09/11/16 14:08 Pulse Ox 94 L 09/11/16 14:08 Intake & Output 09/10/16 09/11/16 09/11/16 18:59 06:59 18:59 Intake Total 650 2000 860 Output Total 2500 1925 1000 Balance -1850 75 -140 Intake: Intake, IV Titration 1100 Amount D5-0.45% NaCl with KCl 1000 20Meq/l 1,000 ml @ 125 mls/hr IV .Q8H IVETT Rx#: [id number] Piperacillin-Tazobactam 3 100 .375 gm In Dextrose/Water 1 50ml.bag @ 12.5 mls/hr IVPB Q8HR IVETT Rx#: [id number] Oral 650 900 860 Output: Urine 2500 1925 1000 Uretheral ([place]) 825 1000 Other: Voiding Method Indwelling Catheter # Voids 2 - Constitutional General appearance: Present: cooperative, no acute distress - Respiratory Respiratory: bilateral: CTA, diminished (Mildly at the bases) - Gastrointestinal General gastrointestinal: Present: normal bowel sounds, soft, tenderness ( Incisional) Localized gastrointestinal: surgical scar: diffuse (Dressings intact with some old dried blood) - Labs CBC & Chem 7: 09/08/16 14:51 09/08/16 14:51 Assessment and Plan (1) Appendicitis Status: Acute Plan: We'll add some MiraLAX for the heartburn. Discontinue the catheter. Increase his diet. He's progressing slowly. Anticipate discharge in the next day or 2.
[2016-09-11] MEDS: D5-0.45% NACL WITH KCL 20MEQ/L 1,000 ML IV SCH ×3 (16:49→23:32)
[2016-09-11] MEDS: LACTATED RINGERS 1,000 ML IV SCH (17:06)
[2016-09-11] MEDS: WARFARIN 5 MG TAB PO SCH (18:33)
[2016-09-11] MEDS: ATORVASTATIN 10 MG TAB PO SCH (20:44)
[2016-09-12] MEDS: LACTATED RINGERS 1,000 ML IV SCH ×2 (04:05→23:41)
[2016-09-12] MEDS: HYDROmorphone 1 MG/ML 1 ML SYRINGE IVP PRN (04:06)
[2016-09-12] MEDS: ALVIMOPAN 12 MG CAPSULE PO SCH ×2 (07:36→20:27)
[2016-09-12] MEDS: D5-0.45% NACL WITH KCL 20MEQ/L 1,000 ML IV SCH ×4 (07:36→23:41)
[2016-09-12] MEDS: HEPARIN SODIUM,PORCINE 5,000 UNIT/ML 1 ML VIAL SQ SCH ×3 (07:36→23:46)
[2016-09-12] MEDS: PANTOPRAZOLE 40 MG TABLET PO SCH (07:36)
[2016-09-12] MEDS: TAMSULOSIN 0.4 MG CAP.ER.24H PO SCH (07:37)
[2016-09-12] MEDS: PIPERACILLIN-TAZOBACTAM 3.375 GM in DEXTROSE/WATER 1 50ML.BAG IVPB SCH ×3 (08:47→23:46)
[2016-09-12] MEDS ORDERED: HYDROcodone/APAP 5-325MG 1 EACH TAB PO PRN (09:23)
--- NOTE | 2016-09-12 12:14 | P.PN ---
Subjective Principal diagnosis: Appendicitis, status post ileocecectomy The patient is feeling somewhat better today. He was able to tolerate a diet. Urinating without difficulty. He did have a loose bowel movement was some blood in it today. Objective - Vital Signs Vital signs: Vital Signs Temp 98.0 F 09/12/16 07:48 Pulse 81 09/12/16 08:00 Resp 17 09/12/16 08:00 BP 128/66 09/12/16 07:48 Pulse Ox 93 L 09/12/16 07:48 Intake & Output 09/11/16 09/12/16 09/12/16 18:59 06:59 18:59 Intake Total 2270 3000 480 Output Total 1000 3800 1050 Balance 1270 -800 -570 Intake: IV 1000 2050 D5-0.45% NaCl with KCl 1000 2000 20Meq/l 1,000 ml @ 125 mls/hr IV .Q8H IVETT Rx#: [id number] Piperacillin-Tazobactam 3 50 .375 gm In Dextrose/Water 1 50ml.bag @ 12.5 mls/hr IVPB Q8HR IVETT Rx#: [id number] Intake, IV Titration 50 50 Amount Piperacillin-Tazobactam 3 50 50 .375 gm In Dextrose/Water 1 50ml.bag @ 12.5 mls/hr IVPB Q8HR IVETT Rx#: [id number] Oral 1220 900 480 Output: Urine 1000 3800 1050 Uretheral ([place]) 1000 800 Other: Voiding Method Indwelling Catheter Indwelling Catheter # Bowel Movements 0 - Constitutional General appearance: Present: cooperative, no acute distress - Respiratory Respiratory: bilateral: CTA - Gastrointestinal General gastrointestinal: Present: normal bowel sounds, soft - Labs CBC & Chem 7: 09/08/16 14:51 09/08/16 14:51 Assessment and Plan (1) Appendicitis Status: Acute Plan: We'll monitor for signs of ongoing bleeding. This is likely just some getting that it occurred at the anastomosis. Likely discharge in the next day or 2.
[2016-09-12] MEDS: WARFARIN 5 MG TAB PO SCH (18:29)
[2016-09-12] MEDS: HYDROcodone/APAP 5-325MG 1 EACH TAB PO PRN (18:33)
[2016-09-12] MEDS: ATORVASTATIN 10 MG TAB PO SCH (20:27)
[2016-09-13] MEDS ORDERED: MAGNESIUM HYDROXIDE 2,400 MG/10 ML CUP PO PRN (08:28)
[2016-09-13] MEDS: HEPARIN SODIUM,PORCINE 5,000 UNIT/ML 1 ML VIAL SQ SCH ×2 (08:44→18:20)
[2016-09-13] MEDS: TAMSULOSIN 0.4 MG CAP.ER.24H PO SCH (08:44)
[2016-09-13] MEDS: PANTOPRAZOLE 40 MG TABLET PO SCH (08:44)
[2016-09-13] MEDS: ALVIMOPAN 12 MG CAPSULE PO SCH (08:44)
[2016-09-13] MEDS: PIPERACILLIN-TAZOBACTAM 3.375 GM in DEXTROSE/WATER 1 50ML.BAG IVPB SCH ×2 (09:33→18:19)
[2016-09-13] MEDS: HYDROcodone/APAP 5-325MG 1 EACH TAB PO PRN (10:19)
[2016-09-13 13:55] VITALS: BP 124/82; PULSE 103; RESP 17; TEMP 98.2
--- NOTE | 2016-09-13 16:54 | P.DS ---
Providers Date of admission: 09/08/16 13:27 Expected date of discharge: 09/13/16 Attending physician: Arsen Mann Consults: 09/08/16 13:07 Consult Physician Routine Consulting Provider: Nir Kaur Consult Reason/Comments: Medical management Do you want consulting provider notified?: Yes Primary care physician: [facility] Course: This a 56-year-old male who underwent laparoscopic interval appendectomy. Patient has significant amount of inflammation requiring conversion to the open procedure and he underwent a limited right colectomy. Please see chart for details. Procedures: Laparoscopic appendectomy, right colectomy Patient Condition at Discharge: Good Plan - Discharge Summary New Discharge Prescriptions: New Docusate [Colace] 100 mg PO BID #20 capsule HYDROcodone/APAP 7.5-325MG [[place] 7.5] 1 each PO Q4H PRN #60 tab PRN Reason: Pain No Action Warfarin Sodium [Coumadin] 5 mg PO SUTUTHSA Simvastatin [Zocor] 20 mg PO HS Warfarin [Coumadin] 7.5 mg PO MOWEFR Tamsulosin [Flomax] 0.4 mg PO DAILY Acetaminophen Tab [Tylenol] 650 mg PO Q6HR PRN tab PRN Reason: Fever and/ or Mild Pain Levofloxacin [Levaquin] 500 mg PO DAILY #14 tab Discharge Medication List Simvastatin [Zocor] 20 mg PO HS 10/30/14 [History] Tamsulosin [Flomax] 0.4 mg PO DAILY 10/30/14 [History] Warfarin Sodium [Coumadin] 5 mg PO SUTUTHSA 10/30/14 [History] Warfarin [Coumadin] 7.5 mg PO MOWEFR 10/30/14 [History] Acetaminophen Tab [Tylenol] 650 mg PO Q6HR PRN tab 08/26/16 [Rx] Levofloxacin [Levaquin] 500 mg PO DAILY #14 tab 08/26/16 [Rx] Docusate [Colace] 100 mg PO BID #20 capsule 09/13/16 [Rx] HYDROcodone/APAP 7.5-325MG [[place] 7.5] 1 each PO Q4H PRN #60 tab 09/13/16 [Rx] Follow up Appointment(s)/Referral(s): Arsen Mann MD [STAFF PHYSICIAN] - 1 Week Activity/Diet/Wound Care/Special Instructions: Do not soak in pools, tubs, or hot tubs. Do not drive while on pain medication.
== END 2016-09-13 19:05 | disposition home or self-care (01) | DRG 330 ==
LOC: OR 08:23 → 3SUR 13:27
PROVIDERS: ADMIT Surgery; ATTEND Surgery
PROC: 0DTJ4ZZ Resection of Appendix, Percutaneous Endoscopic Approach (ICD-10-PCS; 2016-09-08)
PROC: 0DTF0ZZ Resection of Right Large Intestine, Open Approach (ICD-10-PCS; principal; 2016-09-08 10:25)
DX: K36 Other appendicitis (principal); I69.854 Hemiplegia and hemiparesis following other cerebrovascular disease affecting left non-dominant side; K52.9 Noninfective gastroenteritis and colitis, unspecified; I69.820 Aphasia following other cerebrovascular disease; N42.9 Disorder of prostate, unspecified; G43.909 Migraine, unspecified, not intractable, without status migrainosus; Z79.01 Long term (current) use of anticoagulants; Z79.899 Other long term (current) drug therapy; Z86.011 Personal history of benign neoplasm of the brain
CPT/HCPCS: 80048; 85025; 85610; 88307

== ENCOUNTER → 2016-10-01 | Outpatient (CLI) | payer MEDICAID, MEDICARE ==
[2016-10-01 14:39] LABS: INR 3.3 (<1.2); Prothrombin Time 32.4 sec (9.0-12.0)
== END | disposition home or self-care (01) ==
LOC: LABWHC1 13:51
PROVIDERS: ATTEND Family Medicine
DX: N40.0 Benign prostatic hyperplasia without lower urinary tract symptoms (principal); Z51.81 Encounter for therapeutic drug level monitoring; Z79.01 Long term (current) use of anticoagulants; Z79.899 Other long term (current) drug therapy
CPT/HCPCS: 36415; 84153; 85610

== ENCOUNTER → 2016-12-21 | Outpatient (CLI) | payer MEDICAID ==
--- NOTE | 2016-12-22 00:31 | MR ---
EXAMINATION TYPE: MR brain wo/w con DATE OF EXAM: 12/21/2016 COMPARISON: 01/14/2016 HISTORY: Tumor remover 2011, Follow up, previous mri on pacs TECHNIQUE: Multiplanar, multisequence images of the brain and brainstem is performed without and with IV contras t, utilizing 9 mL intravenous Gadavist . FINDINGS: There is a 16 x 7mm extra-axial enhancing nodular mass in the lateral aspect of the right t emporal lobe region. There is right temporal craniotomy defect. There is no adjacent cerebral edema. There is no midline shift. There is no hydrocephalus. There is a 16 x 8 mm enhancing mass in the posterior fossa at the foramen of [place]. There is no en largement however of the fourth ventricle. There is no significant mass effect upon the mesencephalon . The white matter structures overall have fairly normal signal pattern. There is no evidence of cortic al infarct. The tiffanie appears normal. There is mucosal thickening in the maxillary sinuses. There is a 8 mm area of fluid signal in the medial aspect of the right thalamus. This is consistent with a smal l lacunar infarct. There is normal flow-void in the anterior middle and posterior cerebral arteries. IMPRESSION: Maxillary sinusitis. Extra-axial right temporal mass has increased very slightly compared to last exam. Previous exam measures 13 x 6 mm and today's exam measures 16 x 7 mm.There is a extra- axial foramen of [place]endie enhancing mass consistent with meningioma or ependymoma that measures 16 x 8 mm. This appears stable compared to old exam. No hydrocephalus. There is stable small right thalamic lacunar infarct.
== END | disposition home or self-care (01) ==
LOC: RADMRIMAIN 15:33
PROVIDERS: ATTEND Neurological Surgery
DX: D32.0 Benign neoplasm of cerebral meninges (principal); I63.9 Cerebral infarction, unspecified; J32.0 Chronic maxillary sinusitis
CPT/HCPCS: 70553; A9581

== ENCOUNTER → 2017-06-27 | Outpatient (CLI) | payer MEDICAID ==
--- NOTE | 2017-06-27 14:52 | CT ---
EXAMINATION TYPE: CT abdomen pelvis w con DATE OF EXAM: 06/27/2017 COMPARISON: Prior CT abdomen and pelvis December 17, 2016 and older study August 24, 2016 HISTORY: lymphadenopathy, prior abn CT CT DLP: 1505 mGycm, Automated Exposure Control for Dose Reduction was Utilized. CONTRAST: CT scan of the abdomen and pelvis is performed with oral and with IV Contrast, patient injected with 100 mL of Isovue 300. FINDINGS: LUNG BASES: Some patchy linear scarring and/or atelectasis in both bases is redemonstrated. LIVER/GB: Liver remains hypodense relative to spleen suggesting fatty infiltration. PANCREAS: No significant abnormality is seen. SPLEEN: No significant abnormality is seen. ADRENALS: No significant abnormality is seen. KIDNEYS: No significant abnormality is seen. BOWEL: Oral contrast reaches level of rectum. There is no suspicious small or large bowel dilatation. There are diverticula in the sigmoid colon. There is mild wall thickening in the distal sigmoid colo n and rectum. Findings could be product of poor distention, a colitis cannot be excluded. Correlate c linically. PROSTATE/SEMINAL VESICLES: There is lobulated prominence to bilateral seminal vesicles redemonstrated . Below this prostate gland is enlarged in size bulging on bladder base, underlying BPH is felt prese nt. Correlate clinically. There are few scattered pelvic phleboliths. LYMPH NODES: No new greater than 1cm abdominal or pelvic lymph nodes are appreciated. Anterior to IV C there is heterogeneous hypodense mass redemonstrated measuring 3.5 x 3.0 cm axial image 44 not sign ificantly changed in size or appearance from last 2 studies. It is immediately below the duodenal swe ep similar to prior. Mass effect on the anterior wall of the IVC is noted on current study. OSSEOUS STRUCTURES: No significant abnormality is seen. OTHER: Vertical scar in the anterior abdominal wall midline above the umbilicus is redemonstrated new from August [address] CT[address] IMPRESSION: Stable right mid abdominal mass just inferior to third portion of duodenal of uncertain e tiology. No new mass or adenopathy is present.
== END | disposition home or self-care (01) ==
LOC: RADCTMAIN 12:32
PROVIDERS: ATTEND Surgery
DX: R19.00 Intra-abdominal and pelvic swelling, mass and lump, unspecified site (principal)
CPT/HCPCS: 74177; Q9967

== ENCOUNTER 2017-07-06 12:43 | Day surgery (SDC) | payer MEDICAID ==
[2017-07-01 10:38] VITALS: BMI 27.9
[~2017-07-06 12:43] MED LIST changes: -DEXAMETHASONE SOD PHOSPHATE 10 MG/ML 1 ML VIAL IV ONE; -HEPARIN SODIUM,PORCINE 5,000 UNIT/ML 1 ML VIAL SQ ONE; +LACTATED RINGERS 1,000 ML IV SCH; -MIDAZOLAM 2 MG/2 ML VIAL IV PRN; -ONDANSETRON 4 MG/2 ML VIAL IVP ONE; -SCOPOLAMINE 1.5MG/72HR PATCH TRANSDERM ONE; -ceFAZolin 2 GM in SODIUM CHLORIDE 0.9% 100 ML IVPB ONE; -metroNIDAZOLE-NS PMX 500 MG in SALINE 1 100ML.BAG IVPB ONE
[2017-07-06 13:05] VITALS: RESP 16; TEMP 97.6
[2017-07-06] MEDS ORDERED: PROPOFOL 10 MG/ML 20 ML VIAL IV ONE (13:20)
--- NOTE | 2017-07-06 13:25 | P.GSHP ---
History of Present Illness H&P Date: 07/06/17 Chief Complaint: Duodenal mass This a 57-year-old male who has a history of a 3 cm mass near the third portion of the duodenum. Patient's had previous CAT scans and MRIs which show a stable mass. He presents today for EGD for surveillance of this mass. 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, inguinal hernia, heartburn, patent foramen ovale History of Any Multi-Drug Resistant Organisms: None Reported Past Surgical History: Appendectomy Additional Past Surgical History / Comment(s): eye surgery x 2, removal of meningioma COLONOSCOPY; [facility] Past Anesthesia/Blood Transfusion Reactions: Postoperative Nausea & Vomiting ( PONV) Additional Past Anesthesia/Blood Transfusion Reaction / Comment(s): motion sickness as child Smoking Status: Never smoker - Past Family History Father Family Medical History: Cancer Medications and Allergies Home Medications Medication Instructions Recorded Confirmed Type Tamsulosin [Flomax] 0.4 mg PO DAILY 10/30/14 07/01/17 History Warfarin Sodium [Coumadin] 5 mg PO SUTUWETHSA 10/30/14 07/01/17 History Warfarin [Coumadin] 7.5 mg PO MOFR 10/30/14 07/01/17 History Acetaminophen Tab [Tylenol] 650 mg PO Q6HR PRN tab 08/26/16 07/06/17 Rx Allergies Allergy/AdvReac Type Severity Reaction Status Date / Time No Known Allergies Allergy Verified 07/01/17 10:32 Surgical - Exam Vital Signs Temp Pulse Resp BP Pulse Ox 97.6 F 79 16 135/83 97 07/06/17 13:03 07/06/17 13:03 07/06/17 13:03 07/06/17 13:03 07/06/17 13:03 - General well developed, no distress - Eyes PERRL - ENT normal pinna - Neck no masses - Respiratory normal expansion - Cardiovascular Rhythm: regular - Abdomen Abdomen: soft, non tender Assessment and Plan Assessment: Questionable duodenal mass. We'll perform EGD.
--- NOTE | 2017-07-06 13:37 | P.OP ---
Date of Procedure: 07/06/17 Preoperative Diagnosis: GERD Postoperative Diagnosis: Antral gastritis Procedure(s) Performed: EGD Anesthesia: MAC Surgeon: Arsen Mann Pathology: other (Antrum) Condition: stable Description of Procedure: The patient's placed on the endoscopy table in the lateral position. He received IV sedation. The gastroscope was placed oropharynx passed in the esophagus and into the stomach. The scope was then placed through the pylorus. The first and second portion of duodenum appeared normal. There isany masses blocking the duodenum. Scope was withdrawn. And the antrum there is some mild inflammation. A biopsies performed. The scope was unretroflexed and remainder some appeared normal. The GE junction was at 40 cm. The distal esophagus appeared normal. The proximal esophagus appeared normal. Scope was withdrawn for patient.
[2017-07-06 14:05] VITALS: BP 105/76; PULSE 75
== END 2017-07-06 14:23 | disposition home or self-care (01) ==
LOC: ORWHC2ENDO 12:43
PROVIDERS: ATTEND Surgery
DX: K29.70 Gastritis, unspecified, without bleeding (principal); N40.0 Benign prostatic hyperplasia without lower urinary tract symptoms; I69.954 Hemiplegia and hemiparesis following unspecified cerebrovascular disease affecting left non-dominant side; K21.9 Gastro-esophageal reflux disease without esophagitis; Z79.01 Long term (current) use of anticoagulants; Z79.899 Other long term (current) drug therapy
CPT/HCPCS: 88305; 43239; J2704

== ENCOUNTER → 2017-10-28 | Outpatient (CLI) | payer MEDICAID ==
--- NOTE | 2017-10-28 13:32 | MR ---
No charge study. Test patient. EXAMINATION TYPE: MR Prostate wo/w con DATE OF EXAM: 10/28/2017 COMPARISON: CT abdomen and pelvis June 27, 2017 IMAGE QUALITY: Good. INDICATION: Test ; patient has symptoms of difficulty urinating taking Flomax for enlarged prostate p er patient. PSA: 1.0 ng/ml on October 01, 2016 Recent Biopsy and Date: n/a Pathology Report (If Applicable): n/a TECHNIQUE: Examination was performed using a 3T MRI without an endorectal coil. Multiparametric imaging was perf ormed with T2 multiplanar sequences, axial diffusion weighted imaging and dynamic contrast enhanced i maging, utilizing 7.5 mL intravenous Gadavist gadolinium contrast. FINDINGS: PROSTATE VOLUME: 5.1 cm SI x 3.7 cm AP x 3.7 cm LR Vol= 35.31 cc PSA DENSITY: 4.23 ng/ml/cc (calculated) Only area of concern is right transitional zone seen best on axial image 20 Site 1: Assessment Category:3 Size: 15 mm x 11 mm x 6 mm Location(s):right base ; There is asymmetry with irregularity along the capsular margin without diffusion abnormality. IMPRESSION: Highest Assessment Category: 3 False negative rates for MRI range from 5-20% depending on risk profile. Assessment Categories: 1 ? Very low (clinically significant cancer is highly unlikely to be present) 2 ? Low (clinically significant cancer is unlikely to be present) 3 ? Intermediate (the presence of clinically significant cancer is equivocal) 4 ? High (clinically significant cancer is likely to be present) 5 ? Very high (clinically significant cancer is highly likely to be present) Locations: PZ = peripheral zone; TZ = transition zone CZ=central zone; AFS = anterior fibromuscular stroma a=anterior half (i.e. PZa=anterior half of peripheral zone); pm= posterior medial (i.e PZpm) pl = postero-lateral (i.e. PZpl); p = posterior half (i.e. TZp) ; a = anterior half (i.e TZa or P Za) Other: N=no or no; E= equivocal; Y=yes EPE = extraprostatic extension NVB = neurovascular bundle NA = not applicable/not available
== END | disposition home or self-care (01) ==
LOC: RADMRIMAIN 07:07
PROVIDERS: ATTEND Radiology Diagnostic Radiology
DX: Z12.5 Encounter for screening for malignant neoplasm of prostate (principal)
CPT/HCPCS: 72197; A9581

== ENCOUNTER → 2017-12-21 | Outpatient (CLI) | payer MEDICAID ==
--- NOTE | 2017-12-22 07:07 | MR ---
EXAMINATION TYPE: MR brain wo/w con DATE OF EXAM: 12/21/2017 COMPARISON: MRI brain December 21, 2016. HISTORY: Follow up meningioma after surgical excision. TECHNIQUE: Multiplanar, multisequence images of the brain and brainstem is performed without and with IV contras t, utilizing 9 mL intravenous Gadavist . FINDINGS: Diffusion weighted images demonstrate no evidence of a recent infarct or other diffusion ab normality. There is no worrisome extra-axial fluid collection. The ventricular system and cisternal spaces are normal in size and appearance. The brain volume is age appropriate. Occasional scattered focus of T2 hyperintensity is redemonstrated. Old lacunar infarct anterior medial right thalamus see n best sagittal image 87 post contrast images is unchanged from prior. There is persistent extra-axial homogeneous enhancing 14 x 6 mm right frontal mass presumed meningiom a axial image 18. There is redemonstration of more concerning heterogeneous enhancing subtle T2 hyperintense 2.1 x 1.7 cm consistent with meningioma. Extra-axial lesion in the posterior fossa level of the foramen of Mage ndie not significantly changed in size or appearance from prior MRI. Nonspecific this could reflect m eningioma or ependymoma. Fourth ventricle size is stable and not suspiciously enlarged. No new enhan cing lesions are seen. The dural venous sinuses appear patent. A few small mucous retention cysts or polyps in the inferior maxillary sinuses bilaterally remain present. Mild mucosal thickening anterior ethmoid sinuses bilaterally is again seen. The globes are intact bilaterally. IMPRESSION: Overall stable findings, stable right temporal extra-axial lesion consistent with meningi oanh. Stable intraventricular lesion inferior to fourth ventricle in the midline could reflect ependym oanh or meningioma. No new enhancing lesions are seen. Ventricular size is stable and not enlarged.
== END | disposition home or self-care (01) ==
LOC: RADMRIMAIN 15:08
PROVIDERS: ATTEND Neurological Surgery
DX: D32.0 Benign neoplasm of cerebral meninges (principal)
CPT/HCPCS: 70553; A9585

== ENCOUNTER → 2018-06-14 | Outpatient (CLI) | payer MEDICAID ==
--- NOTE | 2018-06-14 13:29 | CT ---
EXAMINATION TYPE: CT abdomen pelvis w con DATE OF EXAM: 06/14/2018 COMPARISON: CT abdomen and pelvis June 27, 2017 and older studies. HISTORY: RUQ mass, prior abnormal CT. CT DLP: 955.2 mGycm, Automated Exposure Control for Dose Reduction was Utilized. CONTRAST: CT scan of the abdomen and pelvis is performed with oral and with IV Contrast, patient injected with 100 mL of Isovue 300. FINDINGS: LUNG BASES: Persistent mild linear scarring in both bases just above diaphragm.. LIVER/GB: No significant abnormality is appreciated. PANCREAS: No significant abnormality is seen. SPLEEN: No significant abnormality is seen. ADRENALS: No significant abnormality is seen. KIDNEYS: No significant abnormality is seen. BOWEL: Oral contrast reaches level of the proximal sigmoid colon. There is no suspicious small or lar ge bowel dilatation. Few diverticula left lower quadrant and junction of left and sigmoid colon remai n present without CT evidence for acute diverticulitis PROSTATE/SEMINAL VESICLES: Prostate gland appears slightly less prominent in size from prior CT. Nighat cent pelvic phleboliths are redemonstrated. LYMPH NODES: No new greater than 1cm abdominal or pelvic lymph nodes are appreciated. Anterior to IV C in the right mid abdomen there is persistent well-defined heterogeneous lesion slightly hypodense t o muscle measuring 3.7 x 3.5 cm axial image 43 x 4.2 cm craniocaudal dimension coronal image 43. Pers istent mass effect on the anterior wall of IVC is slightly more prominent from prior studies. It is b elow the third portion of duodenum with local mass effect coronal image 40 that is also more prominen t. It is stable or perhaps slowly increasing in size from older studies. Degree of mass effect and du odenum is similar to August 24, 2016 coronal image 34. OSSEOUS STRUCTURES: There is facet arthropathy in the lower lumbar spine. OTHER: No significant additional abnormality is seen. IMPRESSION: Right mid abdominal retroperitoneal well-defined mass of uncertain etiology redemonstrate d. It is stable or slightly growing from August 2016 study. No new masses or adenopathy is seen.
== END | disposition home or self-care (01) ==
LOC: RADCTMAIN 09:20
PROVIDERS: ATTEND Surgery
DX: R19.09 Other intra-abdominal and pelvic swelling, mass and lump (principal)
CPT/HCPCS: 74177; Q9967

== ENCOUNTER → 2018-12-21 | Outpatient (CLI) | payer MEDICAID ==
--- NOTE | 2018-12-21 22:38 | MR ---
EXAMINATION TYPE: MR brain wo/w con DATE OF EXAM: 12/21/2018 COMPARISON: Prior MRI brain December 21, 2017 HISTORY: Follow-up meningioma TECHNIQUE: Multiplanar, multisequence images of the brain and brainstem is performed without and with IV contras t, utilizing 7.5 mL intravenous Gadavist . FINDINGS: Diffusion weighted images demonstrate no evidence of a recent infarct or other diffusion ab normality. There is no worrisome extra-axial fluid collection. The ventricular system and cisternal spaces are normal in size and appearance. The brain volume is age appropriate. Occasional small sca ttered foci of T2 hyperintensity are seen throughout the white matter bilaterally. Lesions are nonspe cific in appearance and distribution. Redemonstrated old lacunar infarct anterior medial right thalam us axial image 16 adjacent to third ventricle Midline structures demonstrate normal morphology. The craniocervical junction appears within normal limits. Post contrast images demonstrate no new enhancing lesions. Stable 10 x 7 mm homogeneous enha ncing right frontal extra-axial lesion with posterior dural extension consistent with small meningiom a axial image 17. The dural venous sinuses appear patent. Tiny mucous retention cyst or polyp inferio r right maxillary sinus with mild mucosal thickening bilateral ethmoid sinuses redemonstrated. Globes are intact. No suspicious fluid signal bilateral mastoid air cells. There is redemonstration of more concerning heterogeneous enhancing subtle T2 hyperintense lobulated lesion measuring 2.1 x 1.7 cm, this extra-axial enhancing lesion in the posterior fossa level of the foramen of Magendie not significantly changed in size or appearance from prior MRI. Nonspecific this could reflect meningioma or ependymoma. Fourth ventricle size is stable and not suspiciously enlarged . IMPRESSION: Overall stable findings, stable right frontal small meningioma and enhancing intraventric ular lesion inferior to fourth ventricle could reflect ependymoma or meningioma. Ventricular size is stable. No new lesions are seen.
== END | disposition home or self-care (01) ==
LOC: RADMRIMAIN 16:08
PROVIDERS: ATTEND Neurological Surgery
DX: D32.0 Benign neoplasm of cerebral meninges (principal)
CPT/HCPCS: 70553; A9585

== ENCOUNTER → 2019-03-12 | Outpatient (CLI) | payer MEDICAID ==
[2019-03-12 17:22] LABS: INR 2.8 (<1.2)
== END | disposition home or self-care (01) ==
LOC: LABWHC1 15:52
PROVIDERS: ATTEND Family Medicine
DX: Z51.81 Encounter for therapeutic drug level monitoring (principal); Z79.01 Long term (current) use of anticoagulants
CPT/HCPCS: 36415; 85610

== ENCOUNTER → 2019-03-16 | Outpatient (CLI) | payer MEDICAID ==
[2019-03-16 13:32] LABS: Basophils % (A) 1 %; Eosinophils # (A) 0.1 k/uL (0-0.7); Eosinophils % (A) 1 %; HCT 46.2 % (39.0-53.0); HGB 15.6 gm/dL (13.0-17.5); Lymphocytes # (A) 1.4 k/uL (1.0-4.8); Lymphocytes % (A) 17 %; MCH 28.8 pg (25.0-35.0); MCHC 33.7 g/dL (31.0-37.0); MCV 85.3 fL (80.0-100.0); Mean Platelet Volume 8.5; Monocytes # (A) 0.5 k/uL (0-1.0); Monocytes % (A) 6 %; Neutrophils # (A) 5.9 k/uL (1.3-7.7); Neutrophils % (A) 74 %; Platelet Count 211 k/uL (150-450); RBC 5.41 m/uL (4.30-5.90); RDW 13.6 % (11.5-15.5); WBC 7.9 k/uL (3.8-10.6)
[2019-03-16 19:01] LABS: African American GFR (CKD) 108.7 (60.0-200.0); Albumin 4.7 g/dL (3.80-4.90); Albumin/Globulin Ratio 2.24 (1.60-3.17); Anion Gap 6.8 mmol/L (4.00-12.00); BUN/Creat Ratio 18.89 Ratio (12.00-20.00); Bilirubin, Conjugated 0.3 mg/dL (0.20-0.40); Bilirubin,Unconjugated 0.4 mg/dL; Calcium 9.2 mg/dL (8.7-10.3); Carbon Dioxide 27.2 mmol/L (21.6-31.8); Chol/HDL Ratio 3.37; Globulin 2.1 g/dL (1.6-3.3); Non-African American GFR(CKD) 93.8 (60.0-200.0); Potassium 4.1 mmol/L (3.5-5.5); Total Bilirubin 0.7 mg/dL (0.2-1.2); Total Protein 6.8 g/dL (6.2-8.2)
== END | disposition home or self-care (01) ==
LOC: LABWHC1 13:02
PROVIDERS: ATTEND Family Medicine
DX: I67.89 Other cerebrovascular disease (principal); Z79.01 Long term (current) use of anticoagulants
CPT/HCPCS: 36415; 80053; 80061; 82248; 84153; 84443; 85025

== ENCOUNTER → 2019-04-16 | Outpatient (CLI) | payer MEDICAID | END | disposition home or self-care (01) | LOC: LABWHC1 14:13 → EDSTATUS 14:16 | PROVIDERS: ATTEND Family Medicine | DX: Z53.9 Procedure and treatment not carried out, unspecified reason (principal) ==

== ENCOUNTER → 2019-12-19 | Outpatient (CLI) | payer MEDICAID ==
--- NOTE | 2019-12-19 14:30 | MR ---
EXAMINATION TYPE: MR brain wo/w con DATE OF EXAM: 12/19/2019 COMPARISON: Prior MRI brain December 21, 2018 HISTORY: Meningioma TECHNIQUE: Multiplanar, multisequence images of the brain and brainstem is performed without and with IV contras t, utilizing 9 mL intravenous Gadavist . FINDINGS: Diffusion weighted images demonstrate no evidence of a recent infarct or other diffusion ab normality. There is no worrisome extra-axial fluid collection. The ventricular system and cisternal spaces are normal in size and appearance. The brain volume is age appropriate. Occasional small scattered foci of T2 hyperintensity are seen throughout the white matter bilaterally . Lesions are nonspecific in appearance and distribution. 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 Midline structures redemonstrated normal morphology. The craniocervical junction remains within norm al limits. Fairly stable level x 7 mm homogeneous enhancing right frontal extra-axial lesion with posterior dura l extension consistent with small meningioma axial image 18 current study. The dural venous sinuses r emain patent. Small mucous retention cyst or polyp inferior right maxillary sinus with mild mucosal t hickening bilateral ethmoid sinuses are all redemonstrated. Globes are intact bilaterally. No suspici ous new fluid signal bilateral mastoid air cells. There is redemonstration of more concerning heterogeneous subtle T2 hyperintense lobulated lesion josie suring 2.3 x 1.6 cm lesion axial image 6, this extra-axial lesion in the posterior fossa at level of the foramen of [place]endie not significantly changed in size from prior MRI. Fairly stable density anter ior enhancement on axial image 5 and coronal image 25 noted. Nonspecific this could reflect meningiom a or ependymoma. Fourth ventricle size is stable and not suspiciously enlarged. Some local mass effec t along the posterior-inferior margin remains present. IMPRESSION: Overall stable findings as detailed above. No significant change or new findings from mos t recent MRI.
== END | disposition home or self-care (01) ==
LOC: RADMRIMAIN 13:20
PROVIDERS: ATTEND Neurological Surgery
DX: D32.0 Benign neoplasm of cerebral meninges (principal)
CPT/HCPCS: 70553; A9585

== ENCOUNTER → 2020-05-14 | Outpatient (CLI) | payer MEDICAID ==
[2020-05-14 18:32] LABS: Basophils # (A) 0.04 X 10*3/uL (0.00-0.10); Basophils % (A) 0.6 %; Eosinophils # (A) 0.06 X 10*3/uL (0.04-0.35); HCT 46.2 % (39.6-50.0); HGB 15.4 g/dL (13.0-17.0); Lymphocytes % (A) 25.9 %; MCH 29.3 pg (27.0-32.0); MCHC 33.3 g/dL (32.0-37.0); MCV 87.8 fL (80.0-97.0); Mean Platelet Volume 10.9 fL (9.5-12.2); Monocytes # (A) 0.51 X 10*3/uL (0.20-1.00); Monocytes % (A) 8.3 %; Neutrophils # (A) 3.95 X 10*3/uL (1.80-7.70); Neutrophils % (A) 63.9 %; Platelet Count 213 X 10*3/uL (140-440); RBC 5.26 X 10*6/uL (4.40-5.60); RDW 13.7 % (11.5-14.5); WBC 6.18 X 10*3/uL (4.50-10.00)
[2020-05-14 22:28] LABS: African American GFR (CKD) 95.1 (60.0-200.0); Albumin 4.8 g/dL (3.80-4.90); Albumin/Globulin Ratio 2.4 (1.60-3.17); Calcium 9.5 mg/dL (8.7-10.3); Chol/HDL Ratio 2.9; LDL Cholesterol,Calculated 51.4 mg/dL (0.0-131.0); Potassium 4.5 mmol/L (3.5-5.5); Total Bilirubin 0.8 mg/dL (0.3-1.2); Total Protein 6.8 g/dL (6.2-8.2); VLDL Calculation 28.6 mg/dL (5.00-40.00)
== END | disposition home or self-care (01) ==
LOC: LABWHC1 10:54
PROVIDERS: ATTEND Family Medicine
DX: Z00.00 Encounter for general adult medical examination without abnormal findings (principal); E78.00 Pure hypercholesterolemia, unspecified; Z79.899 Other long term (current) drug therapy
CPT/HCPCS: 36415; 80053; 80061; 85025

== ENCOUNTER → 2020-07-02 | Outpatient (CLI) | payer MEDICAID ==
--- NOTE | 2020-07-02 18:43 | CT ---
EXAMINATION TYPE: CT abdomen pelvis w con DATE OF EXAM: 07/02/2020 COMPARISON: 06/14/2018. HISTORY: Right upper quadrant abdominal swelling post appendectomy x4 years ago. CT DLP: 1481 mGycm Automated exposure control for dose reduction was used. TECHNIQUE: Helical acquisition of images was performed from the lung bases through the pelvis. CONTRAST: Performed with Oral Contrast and with IV Contrast, patient injected with 100ml mL of Isovue 300. FINDINGS: LUNG BASES: No significant abnormality is appreciated. LIVER/GB: No acute abnormality is appreciated. Hepatic steatosis is seen. PANCREAS: No significant abnormality is seen. SPLEEN: No significant abnormality is seen. ADRENALS: No significant abnormality is seen. KIDNEYS: No significant abnormality is seen. FREE AIR: No free air is visualized. RETROPERITONEAL ADENOPATHY: Grossly stable 3.8 x 3.6 cm homogenous, round hypoattenuating mass in th e right upper quadrant abutting the inferior vena cava. No new mass or enlarged lymph nodes seen. REPRODUCTIVE ORGANS: No significant abnormality is seen URINARY BLADDER: No acute abnormality is seen. Prostatomegaly seen. PELVIC ADENOPATHY: None visualized. OSSEOUS STRUCTURES: No significant abnormality is seen. BOWEL: Small hiatal hernia. Otherwise no significant abnormality of the bowel loops. OTHER: None IMPRESSION: Grossly stable right upper quadrant retroperitoneal/pericaval mass without new abnormality seen. Small hiatal hernia.
== END | disposition home or self-care (01) ==
LOC: RADCTMAIN 15:21
PROVIDERS: ATTEND Surgery
DX: R19.01 Right upper quadrant abdominal swelling, mass and lump (principal); K44.9 Diaphragmatic hernia without obstruction or gangrene
CPT/HCPCS: 74177; Q9967

== ENCOUNTER → 2021-03-09 | Outpatient (CLI) | payer MEDICAID ==
[2021-03-09 19:15] LABS: Basophils # (A) 0.05 X 10*3/uL (0.00-0.10); Basophils % (A) 0.8 %; Eosinophils # (A) 0.07 X 10*3/uL (0.04-0.35); Eosinophils % (A) 1.1 %; HCT 46.9 % (39.6-50.0); HGB 15.9 g/dL (13.0-17.0); Lymphocytes # (A) 1.72 X 10*3/uL (0.90-5.00); Lymphocytes % (A) 26.9 %; MCH 29.8 pg (27.0-32.0); MCHC 33.9 g/dL (32.0-37.0); MCV 87.8 fL (80.0-97.0); Mean Platelet Volume 10.8 fL (9.5-12.2); Monocytes # (A) 0.51 X 10*3/uL (0.20-1.00); Neutrophils # (A) 4.02 X 10*3/uL (1.80-7.70); Neutrophils % (A) 62.9 %; Platelet Count 228 X 10*3/uL (140-440); RBC 5.34 X 10*6/uL (4.40-5.60); RDW 13.9 % (11.5-14.5); WBC 6.39 X 10*3/uL (4.50-10.00)
[2021-03-09 19:24] LABS: ALT 40 U/L (10-49); AST 26 U/L (14-35); African American GFR (CKD) 104.4 (60.0-200.0); Albumin 4.8 g/dL (3.8-4.9); Albumin/Globulin Ratio 1.98 (1.60-3.17); Alkaline Phosphatase 80 U/L (41-126); BUN/Creat Ratio 24.67 Ratio (12.00-20.00); Blood Urea Nitrogen 22.7 mg/dL (9.0-27.0); Calcium 8.9 mg/dL (8.7-10.3); Carbon Dioxide 22.8 mmol/L (20.0-27.5); Chloride 106 mmol/L (96-109); Globulin 2.4 g/dL (1.6-3.3); Glucose 95 mg/dL (70-110); LDL Cholesterol,Calculated 53.1 mg/dL (0.0-131.0); Non-African American GFR(CKD) 90.1 (60.0-200.0); Potassium 4.3 mmol/L (3.5-5.5); Sodium 140 mmol/L (135-145); Total Protein 7.2 g/dL (6.2-8.2)
== END | disposition home or self-care (01) ==
LOC: LABWHC1 11:33
PROVIDERS: ATTEND Family Medicine
DX: I61.9 Nontraumatic intracerebral hemorrhage, unspecified (principal); E78.2 Mixed hyperlipidemia; I10 Essential (primary) hypertension
CPT/HCPCS: 36415; 80053; 80061; 85025

== ENCOUNTER → 2022-01-27 | Outpatient (CLI) | payer MEDICAID ==
--- NOTE | 2022-01-27 15:52 | XR ---
EXAMINATION TYPE: XR knee 4V RT DATE OF EXAM: 01/27/2022 COMPARISON: NONE HISTORY: Pain and TECHNIQUE: Four views are submitted. FINDINGS: Diffuse mild osteopenia with mild narrowing of the medial compartment knee joint and patellofemoral j oint. Tiny spur involving the upper margin patella. There is a small amount of fluid in the suprapate llar bursa. Vascular calcifications are seen.. Osseous structures are intact. No acute fracture see n. IMPRESSION: 1. No acute fracture or dislocation. 2. Mild osteoarthritis. There is a small amount of suprapatellar bursal fluid accumulation. This can be associated with internal derangement of knee. Correlate with MRI as clinically warranted.
== END | disposition home or self-care (01) ==
LOC: RADXRMAIN 15:21
PROVIDERS: ATTEND Radiology Diagnostic Radiology
DX: M17.11 Unilateral primary osteoarthritis, right knee (principal); M23.91 Unspecified internal derangement of right knee; M25.561 Pain in right knee

== ENCOUNTER → 2022-06-18 | Outpatient (CLI) | payer MEDICAID ==
[2022-06-18 13:24] LABS: INR 2.9 (<1.2); Prothrombin Time 27.9 sec (9.0-12.0)
== END | disposition home or self-care (01) ==
LOC: LABWHC1 12:11
PROVIDERS: ATTEND Family Medicine
DX: I61.9 Nontraumatic intracerebral hemorrhage, unspecified (principal); Z79.01 Long term (current) use of anticoagulants; Z86.73 Personal history of transient ischemic attack (TIA), and cerebral infarction without residual deficits
CPT/HCPCS: 36415; 85610

== ENCOUNTER → 2022-10-11 | Outpatient (CLI) | payer MEDICAID | END | disposition home or self-care (01) | LOC: LABWHC1 11:13 | PROVIDERS: ATTEND Family Medicine | DX: Z53.9 Procedure and treatment not carried out, unspecified reason (principal) ==

== ENCOUNTER → 2023-08-12 | Outpatient (CLI) | payer MEDICARE ==
[2023-08-12 19:32] LABS: INR 2.89 sec (0.93-1.11); Prothrombin Time 29.1 sec (9.9-11.9)
== END | disposition home or self-care (01) ==
LOC: LABWHC1 14:31
PROVIDERS: ATTEND Family Medicine
DX: Z51.81 Encounter for therapeutic drug level monitoring (principal); Z79.01 Long term (current) use of anticoagulants
CPT/HCPCS: 36415; 85610

== ENCOUNTER 2023-10-31 12:29 | Day surgery (SDC) | payer MEDICARE ==
[2023-10-25 14:45] VITALS: BMI 27.9
[2023-10-31 12:54] VITALS: RESP 16; TEMP 97
[2023-10-31] MEDS: IV FLUID CONTINUATION 1,000 ML IV ONE (12:56)
[2023-10-31] MEDS: LACTATED RINGERS 1,000 ML IV SCH (13:08)
[2023-10-31 13:24] LABS: INR 1.1 (<1.2); Partial Thromboplastin Time 25.3 sec (22.0-30.0); Prothrombin Time 11.7 sec (10.0-12.5)
[2023-10-31] MEDS ORDERED: PROPOFOL 10 MG/ML 20 ML VIAL IV ONE (13:40)
--- NOTE | 2023-10-31 14:05 | P.OP ---
Date of Procedure: 10/31/23 Preoperative Diagnosis: Screening colonoscopy Postoperative Diagnosis: Diverticulosis Procedure(s) Performed: Colonoscopy Anesthesia: MAC Surgeon: Arsen Mann Pathology: none sent Condition: stable Disposition: PACU Description of Procedure: The patient was placed on the endoscopy table in the lateral position. He received IV sedation. Digital rectal exam was performed. This revealed no abnormalities. Flexible colonoscope was then placed patient anus and passed throughout the entire colon. The ileocecal valve was visualized. There was a large amount of stool in the right colon. The visualized right colon appeared normal. The transverse colon, descending colon and sigmoid colon appeared normal except for few scattered diverticuli. The scope was brought back to the rectum this appeared normal. Scope withdrawn from patient.
[2023-10-31 15:12] VITALS: BP 119/75; PULSE 80
== END 2023-10-31 15:30 ==
LOC: ORWHC2ENDO 12:29
PROVIDERS: ATTEND Surgery
DX: Z12.11 Encounter for screening for malignant neoplasm of colon (principal); K57.30 Diverticulosis of large intestine without perforation or abscess without bleeding; K21.9 Gastro-esophageal reflux disease without esophagitis; Z86.73 Personal history of transient ischemic attack (TIA), and cerebral infarction without residual deficits; Z79.01 Long term (current) use of anticoagulants; Z79.899 Other long term (current) drug therapy; Z90.49 Acquired absence of other specified parts of digestive tract
CPT/HCPCS: 85610; 85730

== ENCOUNTER → 2024-01-28 | Outpatient (CLI) | payer MEDICARE ==
[2024-01-29 10:31] LABS: INR 1.92 sec (0.93-1.11); Prothrombin Time 20.9 sec (9.9-11.9)
== END | disposition home or self-care (01) ==
LOC: LABWHC1 10:45
PROVIDERS: ATTEND Family Medicine
DX: Z79.01 Long term (current) use of anticoagulants (principal)
CPT/HCPCS: 36415; 85610

== ENCOUNTER → 2024-07-03 | Outpatient (CLI) | payer MEDICARE ==
[2024-07-03 15:52] LABS: ALT 33 U/L (10-49); AST 29 U/L (14-35); Albumin 4.4 g/dL (3.8-4.9); Albumin/Globulin Ratio 1.91 Ratio (1.60-3.17); Alkaline Phosphatase 85 U/L (41-126); Blood Urea Nitrogen 21.6 mg/dL (9.0-27.0); Carbon Dioxide 22.9 mmol/L (21.6-31.8); Chloride 106 mmol/L (96-109); Chol/HDL Ratio 2.49 Ratio; Globulin 2.3 g/dL (1.6-3.3); Glucose 98 mg/dL (70-110); Potassium 4.4 mmol/L (3.5-5.5); Sodium 141 mmol/L (135-145); Total Bilirubin 0.7 mg/dL (0.3-1.2); Total Protein 6.7 g/dL (6.2-8.2); VLDL Calculation 17.34 mg/dL (5.00-40.00)
[2024-07-03 16:13] LABS: Basophils # (A) 0.04 X 10*3/uL (0.00-0.10); Basophils % (A) 0.6 %; Eosinophils # (A) 0.07 X 10*3/uL (0.04-0.35); HCT 46.2 % (39.6-50.0); HGB 15.6 g/dL (13.0-17.0); Lymphocytes # (A) 1.51 X 10*3/uL (0.90-5.00); Lymphocytes % (A) 22.6 %; MCH 29.2 pg (27.0-32.0); MCHC 33.8 g/dL (32.0-37.0); MCV 86.4 FL (80.0-97.0); Mean Platelet Volume 10.7 FL (9.5-12.2); Monocytes # (A) 0.48 X 10*3/uL (0.20-1.00); Monocytes % (A) 7.2 %; NRBC Per 100 WBC 0 X 10*3/uL (0.00-0.01); Neutrophils # (A) 4.55 X 10*3/uL (1.80-7.70); Platelet Count 242 X 10*3/uL (140-440); RBC 5.35 X 10*6/uL (4.40-5.60); RDW 13.9 % (11.5-14.5); WBC 6.69 X 10*3/uL (4.50-10.00)
== END | disposition home or self-care (01) ==
LOC: LABWHC1 09:47
PROVIDERS: ATTEND Family Medicine
DX: I10 Essential (primary) hypertension (principal); E78.2 Mixed hyperlipidemia; N40.0 Benign prostatic hyperplasia without lower urinary tract symptoms; G25.2 Other specified forms of tremor
CPT/HCPCS: 36415; 80053; 80061; 84153; 85025